=== PATIENT | female | born 1995 | race Caucasian/White ===

== ENCOUNTER 2022-05-02 11:27 | Emergency (ER) | payer MEDICAID ==
[~2022-05-02] VITALS: Ht 154.9 cm; Wt 48.8 kg
[~2022-05-02 11:27] MED LIST: HYDR50TA65 PO; NALT50TA PO; QUET50TA24 PO; RISP1TAB98 PO; TRAZ-251 PO
[2022-05-02 11:43] VITALS: BP 107/72
[2022-05-02 13:07] LABS: BASOPHILS % (AUTO) 0.7 % (0-1); EOSINOPHILS # (AUTO) 0.1 X10'3 (0-0.9); EOSINOPHILS % (AUTO) 1.5 % (0-6); HEMATOCRIT 34.6 % (35.0-45.0); HEMOGLOBIN 11.6 g/dl (12.0-16.0); LYMPHOCYTES # (AUTO) 1.3 X10'3 (1.1-4.8); LYMPHOCYTES % (AUTO) 29.8 % (21-51); MEAN CORPUSCULAR HEMOGLOBIN 29.8 PG (27.0-31.0); MEAN CORPUSCULAR HGB CONC 33.5 g/dL (33.0-36.5); MEAN CORPUSCULAR VOLUME 88.9 FL (78-98); MEAN PLATELET VOLUME 6.5 FL (7.4-10.4); MONOCYTES # (AUTO) 0.4 X10'3 (0-0.9); MONOCYTES % (AUTO) 9.5 % (2-12); NEUTROPHILS # (AUTO) 2.5 X10'3 (1.8-7.7); NEUTROPHILS % (AUTO) 58.5 % (42-75); PLATELET COUNT 304 X10'3 (140-440); RED CELL DISTRIBUTION WIDTH 16.7 % (11.5-14.5); WHITE BLOOD COUNT 4.3 X10'3 (4.5-11.0)
[2022-05-02 13:24] LABS: ALBUMIN 3.2 G/DL (3.4-5.0); ANION GAP 7 (8-16); BETA HCG,QUANTITATIVE < 1.0 mIU/ml; BLOOD UREA NITROGEN 16 MG/DL (7-18); BUN/CREATININE RATIO 27.6 (6.6-38.0); CALCIUM 8.6 MG/DL (8.5-10.1); CHLORIDE 104 MMOL/L (99-107); CREATININE 0.58 MG/DL (0.40-0.90); GLUCOSE 124 MG/DL (70-104); POTASSIUM 3.8 MMOL/L (3.5-5.1); SODIUM 136 MMOL/L (135-145); TOTAL CARBON DIOXIDE 25.4 MMOL/L (24-32); eGFR > 90 ML/MIN
== END 2022-05-02 14:10 | disposition home or self-care (01) ==
LOC: ER 11:28
DX: E11.65 Type 2 diabetes mellitus with hyperglycemia (principal); R51.9 Headache, unspecified; R06.02 Shortness of breath; F31.9 Bipolar disorder, unspecified; F41.9 Anxiety disorder, unspecified; F15.90 Other stimulant use, unspecified, uncomplicated; Z72.89 Other problems related to lifestyle; Z59.00 Homelessness unspecified; Z79.899 Other long term (current) drug therapy
CPT/HCPCS: 36415; 80048; 84702; 85025; 99283

== ENCOUNTER 2022-05-10 14:59 | Emergency (ER) | payer MEDICAID ==
[~2022-05-10] VITALS: Ht 154.9 cm; Wt 52.9 kg
[2022-05-11] MEDS ORDERED: HYDR-3686 PO (03:57)
[2022-05-11 03:58] LABS: BASOPHILS % (AUTO) 0.7 % (0-1); EOSINOPHILS # (AUTO) 0.1 X10'3 (0-0.9); EOSINOPHILS % (AUTO) 2.6 % (0-6); HEMATOCRIT 33.4 % (35.0-45.0); HEMOGLOBIN 11.2 g/dl (12.0-16.0); LYMPHOCYTES # (AUTO) 2.1 X10'3 (1.1-4.8); LYMPHOCYTES % (AUTO) 44.7 % (21-51); MEAN CORPUSCULAR HEMOGLOBIN 29.8 PG (27.0-31.0); MEAN CORPUSCULAR HGB CONC 33.4 g/dL (33.0-36.5); MEAN CORPUSCULAR VOLUME 89.3 FL (78-98); MEAN PLATELET VOLUME 6.6 FL (7.4-10.4); MONOCYTES # (AUTO) 0.5 X10'3 (0-0.9); MONOCYTES % (AUTO) 10.6 % (2-12); NEUTROPHILS # (AUTO) 1.9 X10'3 (1.8-7.7); NEUTROPHILS % (AUTO) 41.4 % (42-75); PLATELET COUNT 290 X10'3 (140-440); RED BLOOD COUNT 3.74 X10'6 (4.20-5.60); RED CELL DISTRIBUTION WIDTH 16.6 % (11.5-14.5); WHITE BLOOD COUNT 4.6 X10'3 (4.5-11.0)
[2022-05-11] MEDS ORDERED: NALT50TA PO (03:58)
[2022-05-11] MEDS ORDERED: RISP1TAB98 PO (04:00)
[2022-05-11 04:14] LABS: ALANINE AMINOTRANSFERASE 36 U/L (12-78); ALBUMIN 3.1 G/DL (3.4-5.0); ALBUMIN/GLOBULIN RATIO 0.8 (1.1-1.5); ALKALINE PHOSPHATASE 66 IU/L (46-116); ANION GAP 7 (8-16); ASPARTATE AMINO TRANSFERASE 20 U/L (10-37); BILIRUBIN,TOTAL 0.3 MG/DL (0.1-1.0); BLOOD UREA NITROGEN 17 MG/DL (7-18); BUN/CREATININE RATIO 20.7 (6.6-38.0); CALCIUM 8.5 MG/DL (8.5-10.1); CHLORIDE 105 MMOL/L (99-107); CREATININE 0.82 MG/DL (0.40-0.90); GLUCOSE 95 MG/DL (70-104); POTASSIUM 4.2 MMOL/L (3.5-5.1); SODIUM 139 MMOL/L (135-145); TOTAL CARBON DIOXIDE 26.7 MMOL/L (24-32); eGFR 84 ML/MIN
[2022-05-11 04:32] LABS: ETHANOL < 0.010 GM/DL (0.0-0.010)
[2022-05-11] MEDS ORDERED: risperiDONE 0.5mg tablet PO SCH (08:00)
[2022-05-11] MEDS ORDERED: naltrexone 50mg tablet PO SCH (08:00)
[2022-05-11 08:13] LABS: URINE HCG NEGATIVE (NEG)
[2022-05-11 08:14] LABS: CLARITY,URINE CLEAR (Clear); COLOR,URINE YELLOW (Yellow); GLUCOSE, URINE NEGATIVE (Neg); KETONES,URINE NEGATIVE (Neg); LEUKOCYTE ESTERASE ,URINE NEGATIVE (Neg); NITRITES, URINE NEGATIVE (Neg); OCCULT BLOOD,URINE NEGATIVE (Neg); PH,URINE 6.5 (4.8-8.0); PROTEIN,URINE NEGATIVE (Neg); UROBILINOGEN,URINE 0.2 E.U/dL (0.2-1.0)
[2022-05-11 08:16] LABS: UA COLLECTION TYPE CLN CATCH MIDSTREAM
[2022-05-11 08:33] LABS: URINE AMPHETAMINE SCREEN NEGATIVE (Neg); URINE BARBITUATE SCREEN NEGATIVE (Neg); URINE BENZODIAZEPINES SCREEN NEGATIVE (Neg); URINE CANNABINOID SCREEN NEGATIVE (Neg); URINE COCAINE SCREEN NEGATIVE (Neg); URINE METHADONE SCREEN NEGATIVE (Neg); URINE OPIATE SCREEN NEGATIVE (Neg); URINE PHENCYCLIDINE SCREEN NEGATIVE (Neg)
[2022-05-11] MEDS: hydrOXYzine 25 MG tablet PO SCH ×2 (08:57→16:00)
[2022-05-11] MEDS ORDERED: acetaminophen 325mg tablet PO ONE (09:05)
--- NOTE | 2022-05-11 09:40 | NUR ---
MARIA FERNANDA (CRIME SPECIALIST) #[phone] CALL IF PT IS D/C'D
--- NOTE | 2022-05-11 11:41 | NUR ---
Patient laying in bed and given socks. No distress observed. Continue to monitor.
--- NOTE | 2022-05-11 11:42 | NUR ---
Patient placed on a 5150 by Prashant MEIER.
--- NOTE | 2022-05-11 12:06 | NUR ---
Pt sitting up in bed, eating lunch. Pt is in no acute distress.
--- NOTE | 2022-05-11 13:02 | NUR ---
Patient accepted at [facility] by Denton Le
--- NOTE | 2022-05-11 14:40 | NUR ---
Patient is feeling suicidal and states since she has been sober she realizes what she has lost and she thinks about her children and she doesn't want to live. RN advised patient that she will be getting help and their is always hope. Patient verbalized understanding. Patient was advised about going to [facility] leaving around 1900. Continue to monitor.
--- NOTE | 2022-05-11 16:32 | NUR ---
RN gave patient a isaac crackers. Patient is coloring and sitting in bed. No distress observed. Continue to monitor.
--- NOTE | 2022-05-11 17:52 | NUR ---
Patient sleeping. No distress observed. Continue to monitor.
[2022-05-11 20:00] VITALS: BP 92/59
== END 2022-05-11 20:06 | disposition still patient (30) ==
LOC: ER 14:59
DX: R45.851 Suicidal ideations (principal); Z20.822 Contact with and (suspected) exposure to COVID-19
CPT/HCPCS: 80053; 80305; 80320; 81003; 81025; 84443; 85025; 87635; 99285; Q0177; 87811; C9803